=== PATIENT | male | born 1995 | race Caucasian/White ===

== ENCOUNTER 2020-03-22 05:12 | Emergency (ER) | payer OTHER, SELFPAY ==
--- NOTE | 2020-03-22 | XR_ITS ---
EXAMINATION: XR SHOULDER, LEFT CLINICAL INFORMATION: Pain COMPARISON: None TECHNIQUE: 3 plain film views of the left shoulder. FINDINGS: The bones and soft tissues are normal. No fracture. Glenohumeral and acromioclavicular alignment is anatomic with normal joint space. No abnormal soft tissue calcifications. IMPRESSION: Normal left shoulder.
[2020-03-22 06:05] VITALS: BP 147/86; PULSE 98; RESP 16; TEMP 36.4; O2SAT 96; BMI 23.7
--- NOTE | 2020-03-22 06:43 | ED.ALCOHOL ---
HPI - Alcohol General Chief Complaint: ETOH/Substance Use Stated Complaint: ALCOHOL WITHDRAWALS/SHOULDER PAIN Time Seen by Provider: 03/22/20 06:43 Source: patient Mode of arrival: ambulatory Limitations: no limitations History of Present Illness HPI narrative: ETOH wants detox, patient also thinks he hurt his L shoulder yesterday no other injuries noted MD complaint: alcohol dependence and desires rehab Last drink: Days (ago) (1) Chronic alcohol use: Yes Previous visits for alcohol intoxication: Yes Recent trauma: Yes Associated symptoms: nausea Treatments prior to arrival: none Related Data Home Medications Medication Instructions Recorded Confirmed No Known Home Meds 03/22/20 03/22/20 Allergies Allergy/AdvReac Type Severity Reaction Status Date / Time Sulfa (Sulfonamide Allergy Unknown RASH Verified 03/22/20 06:12 Antibiotics) [SULFA (SULFONAMIDE ANTIBIOTICS)] Review of Systems Review of Systems: Constitutional : No Fever, No Chills ENT/Mouth : No sore throat, No Rhinorrhea Eyes: No Eye Pain, No Swelling, No Redness Cardiovascular : No Chest Pain, No SOB Respiratory : No Cough, No Sputum Gastrointestinal : No Nausea, No Vomiting, No Diarrhea, No abdominal Pain Genitourinary : No Dysuria, No Hematuria Musculoskeletal : + L shoulder pain, No Myalgias, No Joint Swelling Skin : No Skin Lesions, No rash Neuro : No Weakness, No Numbness Psych : No Anxiety, No Depression, No SI/HI/AH/VH Heme/Lymph: No Bruising, No Bleeding Endocrine : No Polyuria, No Polydipsia All other systems reviewed and are negative [facility] Past Medical History Medical History ETOH abuse Social History Social History Alcohol intake: current Alcohol intake frequency: 3 or more drinks per day Alcohol type: hard liquor Smoking Status: Current every day smoker Smoked in Last 30 Days: Yes Use of substances other than those prescribed or required for medical reasons: No Advance Directives: No Advance Directives Information Provided: No Physical Exam Vital Signs and I&O and Narrative: Vital Signs and I&O: Vital Signs Temp 97.9 F 03/22/20 07:18 Pulse 85 03/22/20 07:18 Resp 14 03/22/20 07:18 BP 146/84 H 03/22/20 07:18 Pulse Ox 97 03/22/20 07:18 Intake & Output 03/21/20 03/22/20 03/22/20 18:59 06:59 18:59 Weight 79.379 kg Body Mass Index 23.7 Appearance: Alert. Oriented X3. No acute distress. Eyes: Pupils equal, round and reactive to light. ENT: Pharynx normal. Neck: Normal inspection. Neck supple. CVS: Normal heart rate and rhythm. Pulses normal. Respiratory: No respiratory distress. Breath sounds normal. Abdomen: Soft and nontender. Skin: Skin warm and dry. Normal skin color. Normal skin turgor. Extremities: No lower extremity edema. + L shoulder pain and clavicle pain distal NV intact Neuro: Oriented X 3. No motor deficit. No sensory deficit. Course Course Course Narrative: LFTs at baseline, negative xray, has bed at [place] at 215pm MDM - Alcohol MDM Narrative Medical decision making narrative: patient c/o L shoulder pain ?fall distal NV intact, no other injuries xray ordered, also c/o wanting detox for ETOH - will need clearance labs, SWAT consult, PO librium for withdrawals Lab Data Result diagrams: 03/22/20 07:13 03/22/20 07:13 Labs: Lab Results 03/22/20 03/22/20 03/22/20 Range/Units 07:13 07:13 07:14 WBC 7.8 (4.8-10.8) X10*3/uL RBC 4.13 L (4.60-5.80) X10*6/uL Hgb 14.2 (14.0-18.0) g/dl Hct 38.9 L (42-52) % MCV 94.2 (80-98) fL MCH 34.4 H (27.0-33.0) pg MCHC 36.5 H (31.0-36.0) g/dl RDW 12.8 (11.0-16.0) % Plt Count 188 (160-400) X10*3/uL MPV 10.3 (9.4-12.4) fL Immature Gran % (Auto) 0.1 (0.0-0.4) % Neut % (Auto) 70.4 (45-73) % Lymph % (Auto) 16.1 L (20-40) % [place] % (Auto) 12.6 H (2-11) % Eos % (Auto) 0.4 (0-4) % Baso % (Auto) 0.4 (0-2) % Neut # (Auto) 5.5 (2.0-8.3) X10*3/uL Lymph # (Auto) 1.3 (1.2-4.9) X10*3/uL [place] # (Auto) 1.0 (0.1-1.2) X10*3/uL Eos # (Auto) 0.0 (0.0-0.4) X10*3/uL Baso # (Auto) 0.0 (0.0-0.2) X10*3/uL Abs Immat Gran (auto) 0.01 (0.00-0.03) X10*3/uL Absolute Nucleated RBC 0.000 (0.0-0.012) X10*3/uL Nucleated RBC % (auto) 0.0 (0.0-0.2) /100WBC Sodium 137 (135-145) mmol/L Potassium 3.7 (3.3-5.1) mmol/l Chloride 102 (96-108) mmol/L Carbon Dioxide 25 (22-29) mmol/L Anion Gap 14 (12-20) BUN 8 L (9-16) mg/dL Creatinine 0.77 (0.5-1.4) mg/dL Estim Creat Clear Calc 159.5 Estimated GFR > 60 Random Glucose 94 (60-115) mg/dL Calcium 9.5 (8.4-10.2) mg/dL Magnesium 1.9 (1.6-2.6) mg/dL Total Bilirubin 0.9 (0.0-1.0) mg/dL Direct Bilirubin 0.4 (0.0-0.5) mg/dL AST 102 H (5-37) U/L ALT 108 H (0-40) U/L Alkaline Phosphatase 91 (39-117) U/L Total Protein 7.1 (6.5-8.0) g/dL Albumin 4.4 (3.5-5.0) g/dL Ethyl Alcohol < 10 mg/dL Discharge Plan Discharge Clinical Impression: Alcohol abuse Patient Disposition: Home, Self-Care Instructions: Abuse of Alcohol (ED) Additional Instructions: your xray was negative for injury, PLEASE GO TO [facility] AT 215pm today Prescriptions: No Action No Known Home Meds RF: 0 Stand Alone Forms: Work/School Release
[2020-03-22] MEDS: chlordiazePOXIDE HCl 25 MG CAPSULE 50 MG PO (07:07)
--- NOTE | 2020-03-22 07:16 | PC.NURSE ---
report taken from alex jeter. pt laying on stretcher upon assessment. no apparent distress. librium given as ordered. pt states he has take in the past and works well for him. admits to drinking 2 pints of vodka per day. last drink about 30 hours ago. having left shoulder pain, states he ran into a wall last night, awaiting xrays. pt also interested in detox, CARE team to evaluate patient.
[2020-03-22 07:18] VITALS: BP 146/84; PULSE 85; RESP 14; TEMP 36.6; O2SAT 97
[2020-03-22 07:19] LABS: MANUAL DIFF FLAG NO
[2020-03-22 07:21] LABS: Basophils Percent Auto 0.4 % (0-2); Eosinophils Percent Auto 0.4 % (0-4); Hematocrit 38.9 % (42-52); Hemoglobin 14.2 g/dl (14.0-18.0); Imm Gran Abs Auto 0.01 X10*3/uL (0.00-0.03); Imm Gran Pct Auto 0.1 % (0.0-0.4); Lymphocytes Absolute Auto 1.3 X10*3/uL (1.2-4.9); Lymphocytes Percent Auto 16.1 % (20-40); Mean Corpuscular HGB Conc 36.5 g/dl (31.0-36.0); Mean Corpuscular Hemoglobin 34.4 pg (27.0-33.0); Mean Corpuscular Volume 94.2 fL (80-98); Mean Platelet Volume 10.3 fL (9.4-12.4); Monocytes Percent Auto 12.6 % (2-11); Neutrophils Absolute Auto 5.5 X10*3/uL (2.0-8.3); Neutrophils Percent Auto 70.4 % (45-73); Platelet Count 188 X10*3/uL (160-400); Red Blood Count 4.13 X10*6/uL (4.60-5.80); Red Cell Distribution Width 12.8 % (11.0-16.0); White Blood Count 7.8 X10*3/uL (4.8-10.8)
--- NOTE | 2020-03-22 07:32 | MHC.CARE ---
CARE Team consult RE: detox CARE Team met with the 24 year old Ivorian speaking male in bed 10 of the main ED to discuss treatment options. Patient reports he is interested in going to detox after he gets his shoulder examined. Patient reports he ran into a wall last night and his shoulder still hurts. Patient reports he has been to [facility] in the past however did not like how he couldn't go outside while in treatment. Patient reports he has been accepted to [facility] before however he could not bring himself to go inside. This junior underwriter called up [facility], neither facility reports they have any male beds available right now however patient is now on the waitlist. CARE Team will continue to bedsearch for this patient. CARE Team available as needed.
[2020-03-22 07:54] LABS: Ethanol < 10 mg/dL
[2020-03-22 07:58] LABS: Alanine Aminotransferase 108 U/L (0-40); Albumin Level 4.4 g/dL (3.5-5.0); Alkaline Phosphatase 91 U/L (39-117); Anion Gap 14 (12-20); Aspartate Amino Transferase 102 U/L (5-37); Bilirubin Direct 0.4 mg/dL (0.0-0.5); Bilirubin Total 0.9 mg/dL (0.0-1.0); Blood Urea Nitrogen 8 mg/dL (9-16); Calcium 9.5 mg/dL (8.4-10.2); Carbon Dioxide 25 mmol/L (22-29); Chloride 102 mmol/L (96-108); Creatinine Clr Calc Pharmacy 159.5; Estimated Glomerular Filt Rate > 60; Glucose Random 94 mg/dL (60-115); Magnesium 1.9 mg/dL (1.6-2.6); Potassium 3.7 mmol/l (3.3-5.1); Sodium 137 mmol/L (135-145); Total Protein 7.1 g/dL (6.5-8.0)
--- NOTE | 2020-03-22 09:19 | MHC.CARE ---
Patient completed intake with [facility]. Patient reports that they gave him an admission time of 1415. Patient reports he should be able to get transportation to the facility. CARE Team available as needed.
[2020-03-22 09:26] VITALS: BP 139/98; PULSE 79; RESP 16; TEMP 36.7; O2SAT 98
== END 2020-03-22 09:36 | disposition home or self-care (01) ==
PROVIDERS: Emergency Provider Emergency Medicine
DX: F10.139 Alcohol abuse with withdrawal, unspecified (principal); M25.512 Pain in left shoulder; F17.200 Nicotine dependence, unspecified, uncomplicated; Z71.41 Alcohol abuse counseling and surveillance of alcoholic; Z71.6 Tobacco abuse counseling
CPT/HCPCS: 36415; 73030; 80048; 80076; 80320; 83735; 85025; 99284

== ENCOUNTER 2020-05-04 17:56 | Emergency (ER) | payer OTHER, SELFPAY ==
[2020-05-04 18:03] VITALS: BP 140/70; PULSE 112; PULSE 97; RESP 20; TEMP 35.8; O2SAT 100; BMI 23.7
[2020-05-04 18:23] VITALS: BP 140/78; PULSE 100; RESP 18; TEMP 36.4; O2SAT 99
--- NOTE | 2020-05-04 20:46 | PC.NURSE ---
REPORT TAKEN FROM LYDIA ARBOLEDA, FIRST CONTACT WITH PT. REPORTS BINGE DRINKING FOR A FEW DAYS, LAST DRINK APPROX 1600 TONIGHT. REPORTS PREVIOUS HISTORY OF WITHDRAWAL. SLIGHTLY TREMULOUS. SKIN PWD, RESPIRATIONS EVEN UNLABORED. AWAITING MD REEVAL. AWARE OF PLAN OF CARE.
--- NOTE | 2020-05-04 20:52 | PC.NURSE ---
FURNACE HAND AT BEDSIDE.
--- NOTE | 2020-05-04 21:55 | ED_ITS ---
HPI - Alcohol General Chief Complaint: ETOH/Substance Use Stated Complaint: ETOH,SEEKING DETOX Time Seen by Provider: 05/04/20 21:55 Source: EMS Mode of arrival: EMS Limitations: no limitations History of Present Illness HPI narrative: arrives with alcohol intoxication question detox MD complaint: alcohol intoxication Chronic alcohol use: Yes Previous visits for alcohol intoxication: Yes Recent trauma: No Associated symptoms: denies other symptoms Related Data Home Medications Medication Instructions Recorded Confirmed No Known Home Meds 03/22/20 03/22/20 Allergies Allergy/AdvReac Type Severity Reaction Status Date / Time Sulfa (Sulfonamide Allergy Unknown RASH Verified 03/22/20 06:12 Antibiotics) [SULFA (SULFONAMIDE ANTIBIOTICS)] Review of Systems Review of Systems: Constitutional: No Weight loss, No Fever, No Chills, No Night Sweats, No Fatigue, No Malaise ENT/Mouth: No Hearing loss, No Ear Pain, No Nasal Congestion, No Sinus Pain, No Hoarseness, No sore throat Eyes: No Eye Pain, No Swelling, No Redness, No Foreign Body, No Discharge, No Vision Changes Cardiovascular: No Chest Pain, No SOB, No Dyspnea on Exertion, No Orthopnea, No Edema, No Palpitations Respiratory: No Cough, No Sputum, No Wheezing, No Smoke Exposure, No Dyspnea Gastrointestinal: No Nausea, No Vomiting, No Diarrhea, No Constipation, No abdominal Pain Genitourinary: no irregular bleeding, No Dysuria, No Urinary Frequency, No Hematuria, No Urinary Incontinence, No Urgency, No Flank Pain, No Urinary Flow Changes, No Hesitancy Musculoskeletal: No joint pain, No Myalgias, No Joint Swelling Skin: No Skin Lesions, No rash Neuro: No Weakness, No Numbness, No Paresthesias, No Loss of Consciousness, No Dizziness, No Headache Psych: No Anxiety/Panic, No Depression, No SI/HI/AH/VH Heme/Lymph: No Bruising, No Bleeding,No Lymphadenopathy Endocrine: No Polyuria, No Polydipsia, No Temperature Intolerance Yes all other systems are reviewed and are negative [facility] Past Medical History Attestation statement: The following information was validated with the patient. Medical History ETOH abuse Social History Social History Alcohol intake: current Alcohol intake frequency: 0-2 drinks per day Alcohol type: hard liquor Smoking Status: Current every day smoker Use of substances other than those prescribed or required for medical reasons: No Advance Directives: No Advance Directives Information Provided: Yes Physical Exam Vital Signs: Vital Signs: Last Vital Signs Temp 97.6 F 05/04/20 18:23 Pulse 100 05/04/20 18:23 Resp 18 05/04/20 18:23 BP 140/78 H 05/04/20 18:23 Pulse Ox 99 05/04/20 18:23 Body Mass Index 23.7 reviewed Const: Other: appears intoxicated, slightly odor of EtOH General: cooperativ e; No acute distress or intoxicated appearing Nutritional Appearance: average body habitus Orientation/consciousness: patient oriented x3 HENMT: Head: Yes normal to inspection Ears: hearing grossly normal bilaterally Eyes: General: appearance normal, both eyes and all related structures Visual Ching: normal visual ching by confrontation Neck: Neck: Yes normal visual inspection, No positive Brudzinski's sign, No positive Kernig's sign and No tender Thyroid: Thyroid normal Chest: Chest palpation & inspection: normal inspection of the chest Resp: Effort & Inspection: normal respiratory effort Cardio: Jugular venous distension: no JVD GI: Inspection: Yes normal to inspection Percussion: Yes normal to percussion Auscultation: normal bowel sounds : General: Yes no CVA tenderness Back/Spine/Pelvis: Back: no CVA tenderness Skin: General skin exam: no rashes or lesions noted Neuro: General: patient oriented x3 Extrem: General: Yes normal to inspection Course Course Course Narrative: patient allowed to sober up in the ER at this time clinically sober he did eat and drink. 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 Denies any SI or HI. Ambulatory status with gait. No signs or symptoms of alcohol withdrawal. Discharge Plan Discharge Clinical Impression: Alcoholic intoxication Patient Disposition: Home, Self-Care Instructions: Abuse of Alcohol (ED), Alcohol Use Disorder (ED) Additional Instructions: please stop drinking alcohol regularly as this can cause serious harm to health and even Go directly to detox Return if any concerns or worsening symptoms Thank you Prescriptions: No Action No Known Home Meds RF: 0 Referrals: ED Physician,Generic [Physician] - 2 days ( primary care doctor Detox) Interventions: ED Discharge Assessment Last Done: 05/04/20 22:13 Discharge Date/Time: 05/04/20 22:15
== END 2020-05-04 22:15 | disposition home or self-care (01) ==
PROVIDERS: Emergency Provider Emergency Medicine
DX: F10.129 Alcohol abuse with intoxication, unspecified (principal); F17.200 Nicotine dependence, unspecified, uncomplicated; Z71.6 Tobacco abuse counseling; Y90.9 Presence of alcohol in blood, level not specified; Z71.51 Drug abuse counseling and surveillance of drug abuser
CPT/HCPCS: 99284

== ENCOUNTER 2020-06-05 07:13 | Emergency (ER) | payer OTHER, SELFPAY ==
--- NOTE | 2020-06-05 07:15 | ED.PSYCH ---
HPI - Psych General Chief Complaint: ETOH/Substance Use Stated Complaint: SECTION 12, ? ALCOHOL WITHDRAWAL Time Seen by Provider: 06/05/20 07:15 Source: patient and EMS Mode of arrival: EMS Limitations: no limitations History of Present Illness HPI Narrative: patient on section 12 made SI statements while intoxicated to suicide prevention hotline, PD state he told hotline he wanted to hang himself, the patient denies this and states he has no SI/HI MD complaint: feels depressed and substance abuse Onset (ago): hour(s) Duration: other (improving ) History of same: No Relieving factors: none Exacerbating factors: none Context: recent alcohol abuse Associated psychiatric symptoms: depression Associated symptoms: denies other symptoms Treatments prior to arrival: none Related Data Home Medications Medication Instructions Recorded Confirmed No Known Home Meds 03/22/20 03/22/20 Allergies Allergy/AdvReac Type Severity Reaction Status Date / Time Sulfa (Sulfonamide Allergy Unknown RASH Verified 03/22/20 06:12 Antibiotics) [SULFA (SULFONAMIDE ANTIBIOTICS)] Review of Systems Review of Systems: Constitutional : No Fever, No Chills ENT/Mouth : No Ear Pain, No Nasal Congestion, No sore throat Eyes: No Eye Pain, No Swelling, No Redness Cardiovascular : No Chest Pain, No SOB Respiratory : No Cough, No Sputum, No Dyspnea Gastrointestinal : No Nausea, No Vomiting, No Diarrhea, No Hematochezia, No Melena Genitourinary : No Dysuria, No Urinary Frequency, No Hematuria Musculoskeletal : No Myalgias Skin : No Skin Lesions, No rash Neuro : No Weakness, No Numbness, No Paresthesias, No Dizziness, No Headache Psych : positive Anxiety, positive Depression, no SI/HI Heme/Lymph: No Lymphadenopathy Endocrine : No Polyuria, No Polydipsia All other systems reviewed and are negative [facility] Past Medical History Attestation statement: The following information was validated with the patient. Medical History ETOH abuse Social History Social History Alcohol intake: current Alcohol intake frequency: 3 or more drinks per day Alcohol type: hard liquor Smoking Status: Current every day smoker Use of substances other than those prescribed or required for medical reasons: No Advance Directives: No Advance Directives Information Provided: No Physical Exam Vital Signs: Vital Signs: Last Vital Signs Temp 97.1 F 06/05/20 10:23 Pulse 96 06/05/20 10:23 Resp 14 06/05/20 10:23 BP 132/85 06/05/20 10:23 Pulse Ox 96 06/05/20 10:23 Body Mass Index 22.1 Appearance: Alert. Oriented X3. No acute distress. Eyes: Pupils equal, round and reactive to light. ENT: Pharynx normal. Neck: Normal inspection. Neck supple. CVS: Normal heart rate and rhythm. Pulses normal. Respiratory: No respiratory distress. Breath sounds normal. Abdomen: Soft and nontender. Skin: Skin warm and dry. Normal skin color. Normal skin turgor. Extremities: No lower extremity edema. No calf ttp Neuro: Oriented X 3. No motor deficit. No sensory deficit. CN 2-12 intact Psych: + anxiety and depression, no SI/HI, no hallucinations, calm and cooperative, making jokes at times Course Course Course Narrative: cleared by [facility]N - pateint declines detox MDM - Psych MDM Narrative Medical decision making narrative: 24 yo male with ETOH reportedly made SI statements to suicide hotline patient denies this states he might have when he was drunk, on section 12 at this time will need labs, BHN consult, PRN medications for withdrawal, the patient is calm and cooperative I have low suspicion for self harm in the ED Lab Data Result diagrams: 06/05/20 08:01 06/05/20 08:01 Labs: Lab Results 06/05/20 06/05/20 06/05/20 Range/Units 08:01 08:01 08:01 WBC 3.5 L (4.8-10.8) X10*3/uL RBC 4.22 L (4.60-5.80) X10*6/uL Hgb 14.4 (14.0-18.0) g/dl Hct 40.1 L (42-52) % MCV 95.0 (80-98) fL MCH 34.1 H (27.0-33.0) pg MCHC 35.9 (31.0-36.0) g/dl RDW 12.2 (11.0-16.0) % Plt Count 114 L D (160-400) X10*3/uL MPV 9.9 (9.4-12.4) fL Immature Gran % (Auto) 0.6 H (0.0-0.4) % Neut % (Auto) 40.1 L (45-73) % Lymph % (Auto) 46.0 H (20-40) % [place] % (Auto) 12.1 H (2-11) % Eos % (Auto) 0.9 (0-4) % Baso % (Auto) 0.3 (0-2) % Lymph # (Auto) 1.6 (1.2-4.9) X10*3/uL [place] # (Auto) 0.4 (0.1-1.2) X10*3/uL Eos # (Auto) 0.0 (0.0-0.4) X10*3/uL Baso # (Auto) 0.0 (0.0-0.2) X10*3/uL Abs Immat Gran (auto) 0.02 (0.00-0.03) X10*3/uL Absolute Neuts (auto) 1.4 L (2.0-8.3) X10*3/uL Absolute Nucleated RBC 0.000 (0.0-0.012) X10*3/uL Nucleated RBC % (auto) 0.0 (0.0-0.2) /100WBC Sodium 142 (135-145) mmol/L Potassium 3.3 (3.3-5.1) mmol/l Chloride 101 (96-108) mmol/L Carbon Dioxide 24 (22-29) mmol/L Anion Gap 20 (12-20) BUN 8 L (9-16) mg/dL Creatinine 0.73 (0.5-1.4) mg/dL Estim Creat Clear Calc 160.5 Estimated GFR > 60 Random Glucose 77 (60-115) mg/dL Calcium 8.9 D (8.4-10.2) mg/dL Total Bilirubin 0.8 (0.0-1.0) mg/dL Direct Bilirubin 0.5 (0.0-0.5) mg/dL AST 310 H (5-37) U/L ALT 292 H (0-40) U/L Alkaline Phosphatase 94 (39-117) U/L Total Protein 7.4 (6.5-8.0) g/dL Albumin 4.6 (3.5-5.0) g/dL Urine Opiates Screen (Not Detect) Ur Barbiturates Screen (Not Detect) Ur Phencyclidine Scrn (Not Detect) Ur Amphetamines Screen (Not Detect) U Benzodiazepines Scrn (Not Detect) Urine Cocaine Screen (Not Detect) U Marijuana (THC) Screen (Not Detect) Ethyl Alcohol 342 H* mg/dL 06/05/20 Range/Units 08:22 WBC (4.8-10.8) X10*3/uL RBC (4.60-5.80) X10*6/uL Hgb (14.0-18.0) g/dl Hct (42-52) % MCV (80-98) fL MCH (27.0-33.0) pg MCHC (31.0-36.0) g/dl RDW (11.0-16.0) % Plt Count (160-400) X10*3/uL MPV (9.4-12.4) fL Immature Gran % (Auto) (0.0-0.4) % Neut % (Auto) (45-73) % Lymph % (Auto) (20-40) % [place] % (Auto) (2-11) % Eos % (Auto) (0-4) % Baso % (Auto) (0-2) % Lymph # (Auto) (1.2-4.9) X10*3/uL [place] # (Auto) (0.1-1.2) X10*3/uL Eos # (Auto) (0.0-0.4) X10*3/uL Baso # (Auto) (0.0-0.2) X10*3/uL Abs Immat Gran (auto) (0.00-0.03) X10*3/uL Absolute Neuts (auto) (2.0-8.3) X10*3/uL Absolute Nucleated RBC (0.0-0.012) X10*3/uL Nucleated RBC % (auto) (0.0-0.2) /100WBC Sodium (135-145) mmol/L Potassium (3.3-5.1) mmol/l Chloride (96-108) mmol/L Carbon Dioxide (22-29) mmol/L Anion Gap (12-20) BUN (9-16) mg/dL Creatinine (0.5-1.4) mg/dL Estim Creat Clear Calc Estimated GFR Random Glucose (60-115) mg/dL Calcium (8.4-10.2) mg/dL Total Bilirubin (0.0-1.0) mg/dL Direct Bilirubin (0.0-0.5) mg/dL AST (5-37) U/L ALT (0-40) U/L Alkaline Phosphatase (39-117) U/L Total Protein (6.5-8.0) g/dL Albumin (3.5-5.0) g/dL Urine Opiates Screen Not Detected (Not Detect) Ur Barbiturates Screen Not Detected (Not Detect) Ur Phencyclidine Scrn Not Detected (Not Detect) Ur Amphetamines Screen Not Detected (Not Detect) U Benzodiazepines Scrn Not Detected (Not Detect) Urine Cocaine Screen Not Detected (Not Detect) U Marijuana (THC) Screen Not Detected (Not Detect) Ethyl Alcohol mg/dL Discharge Plan Discharge Clinical Impression: Alcohol abuse Patient Disposition: Home, Self-Care Instructions: Abuse of Alcohol (ED) Additional Instructions: return to ED for any worsening symptoms or concerns, please consider detox Prescriptions: No Action No Known Home Meds RF: 0
[2020-06-05 07:27] VITALS: BP 115/86; BP 158/92; PULSE 105; PULSE 108; RESP 16; TEMP 36.6; O2SAT 99; BMI 22.1
--- NOTE | 2020-06-05 07:46 | PC.NURSE ---
Patient alert and oriented, skin pwd, resp even and non labored. speaking in full, clear sentences. Pt tearful, talking with this RN and a member of security. Patient states that he has been having a hard time since the breakup with his girlfriend 1 year ago. Also states he lost his job and is worried about him and his cat becoming homeless. patient reports history of ETOH abuse and was sober from june to october and then relapsed. patient reports drinking daily, states he drank 15 shots yesterday. Patient states he called suicide hotline to only talk to someone and reports that he is not suicidal and that he does not want to hurt anyone else. Patient is aware that he came to the ED with a section 12 for SI statements of wanting to hang self. Patient states he is unsure of what he said when he was drinking but he continues to state that he is not suicidal. Support provided to patient, patient aware that crisis team will be talking with him. Patient calm and cooperative. Changed over into hospital attire and belonging secured.
[2020-06-05 08:07] LABS: MANUAL DIFF FLAG NO
[2020-06-05 08:08] LABS: Basophils Percent Auto 0.3 % (0-2); Eosinophils Percent Auto 0.9 % (0-4); Hematocrit 40.1 % (42-52); Hemoglobin 14.4 g/dl (14.0-18.0); Imm Gran Abs Auto 0.02 X10*3/uL (0.00-0.03); Imm Gran Pct Auto 0.6 % (0.0-0.4); Lymphocytes Absolute Auto 1.6 X10*3/uL (1.2-4.9); Mean Corpuscular HGB Conc 35.9 g/dl (31.0-36.0); Mean Corpuscular Hemoglobin 34.1 pg (27.0-33.0); Mean Platelet Volume 9.9 fL (9.4-12.4); Monocytes Absolute Auto 0.4 X10*3/uL (0.1-1.2); Monocytes Percent Auto 12.1 % (2-11); Neutrophils Absolute Auto 1.4 X10*3/uL (2.0-8.3); Neutrophils Percent Auto 40.1 % (45-73); Platelet Count 114 X10*3/uL (160-400); Red Blood Count 4.22 X10*6/uL (4.60-5.80); Red Cell Distribution Width 12.2 % (11.0-16.0); White Blood Count 3.5 X10*3/uL (4.8-10.8)
[2020-06-05 08:33] LABS: Ethanol 342 mg/dL
[2020-06-05 08:40] LABS: Alanine Aminotransferase 292 U/L (0-40); Albumin Level 4.6 g/dL (3.5-5.0); Alkaline Phosphatase 94 U/L (39-117); Anion Gap 20 (12-20); Aspartate Amino Transferase 310 U/L (5-37); Bilirubin Direct 0.5 mg/dL (0.0-0.5); Bilirubin Total 0.8 mg/dL (0.0-1.0); Blood Urea Nitrogen 8 mg/dL (9-16); Calcium 8.9 mg/dL (8.4-10.2); Carbon Dioxide 24 mmol/L (22-29); Chloride 101 mmol/L (96-108); Creatinine Clr Calc Pharmacy 160.5; Estimated Glomerular Filt Rate > 60; Glucose Random 77 mg/dL (60-115); Potassium 3.3 mmol/l (3.3-5.1); Sodium 142 mmol/L (135-145); Total Protein 7.4 g/dL (6.5-8.0)
--- NOTE | 2020-06-05 08:46 | PC.NURSE ---
called/faxed to [facility]
[2020-06-05] MEDS: chlordiazePOXIDE HCl 25 MG CAPSULE 50 MG PO (08:48)
[2020-06-05 08:52] LABS: Amphetamine Screen Urine Not Detected (Not Detect); Barbiturates, Urine Not Detected (Not Detect); Benzodiazepines Screen Urine Not Detected (Not Detect); Cannabinoid Screen Urine Not Detected (Not Detect); Cocaine Screen Urine Not Detected (Not Detect); Opiate Screen Urine Not Detected (Not Detect); Phencyclidine Screen Urine Not Detected (Not Detect)
[2020-06-05 08:58] VITALS: BP 128/85; PULSE 93; RESP 16; O2SAT 96
[2020-06-05 10:23] VITALS: BP 132/85; PULSE 96; RESP 14; TEMP 36.2; O2SAT 96
[2020-06-05] MEDS: Nicotine 21 MG PATCH.TD24 TRANSDERMA (10:34)
--- NOTE | 2020-06-05 11:42 | PC.NURSE ---
Late entry: pt arrived to unit, gait steady, denies any symptoms of withdrawal at this time. Pt easily tearful, denies SI but reporting chronic anxiety and sadness after the breakup with his girlfriend of 8 years. Pt requesting Melatonin to help him sleep. MD aware, pt now taking a hot shoiwer as an alternative.
[2020-06-05 12:00] VITALS: RESP 16
[2020-06-05 12:49] VITALS: BP 152/94; PULSE 130; RESP 20; O2SAT 97
[2020-06-05] MEDS: LORazepam 1 MG TABLET 2 MG PO (12:58)
--- NOTE | 2020-06-05 13:00 | PC.NURSE ---
Dr Joyner notified of N/V and vital signs. Pt medicated as ordered. No further symptoms at this time. Pt continues to decline detox, and is aware that discharge is planned if pt does not request treatment. Pt ate lunch, currently resting in room.
[2020-06-05 13:38] VITALS: BP 149/89; PULSE 90; O2SAT 98
--- NOTE | 2020-06-05 13:38 | PC.NURSE ---
Pt ate lunch, no further vomiting. Pt making calls for transportation.
--- NOTE | 2020-06-05 14:02 | PC.NURSE ---
Case management arranging Lyft ride. Pt aware
--- NOTE | 2020-06-05 14:10 | MHC.CM.ED ---
Received notification from linus Schwartz supervisor that patient was discharged but did not have transportation home. [facility] booked. Patient in waiting room and aware.
== END 2020-06-05 14:23 | disposition home or self-care (01) ==
PROVIDERS: Emergency Provider Emergency Medicine
DX: F10.120 Alcohol abuse with intoxication, uncomplicated (principal); Y90.8 Blood alcohol level of 240 mg/100 ml or more; F17.200 Nicotine dependence, unspecified, uncomplicated
CPT/HCPCS: 36415; 80048; 80076; 80307; 80320; 85025; 99285